=== PATIENT | male | born 1965 | race Caucasian/White ===

== ENCOUNTER → 2020-03-04 | Outpatient (CLI) | payer OTHER ==
[~2020-03-04] MED LIST: ASPIR 8181 MG PO; ATORVASTATIN CA40 MG PO; COLACE100 MG PO; COREG3.125 MG PO; EFFIENT10 MG PO; LISINOPRIL2.5 MG PO; NITROGLYCERIN0.4 MG SUBLING; NOHOMEMEDICATIONS
== END ==
LOC: SJCVCIMAG 11:16
PROVIDERS: ATTEND Internal Medicine Cardiovascular Disease
DX: I25.10 Atherosclerotic heart disease of native coronary artery without angina pectoris (principal); I10 Essential (primary) hypertension; E78.5 Hyperlipidemia, unspecified; E78.00 Pure hypercholesterolemia, unspecified; I25.2 Old myocardial infarction; Z98.61 Coronary angioplasty status; Z79.82 Long term (current) use of aspirin; Z79.899 Other long term (current) drug therapy; Z82.49 Family history of ischemic heart disease and other diseases of the circulatory system; Z87.891 Personal history of nicotine dependence